=== PATIENT | female | born 1975 | race Caucasian/White ===

== ENCOUNTER → 2020-10-30 | Outpatient (CLI) | payer OTHER ==
[2020-10-30 07:58] LABS: ANION GAP 8 mmol/L (5-15); CALCIUM 8.7 mg/dL (8.5-10.1); CHLORIDE 109 mmol/L (98-107)
[2020-10-30 08:11] LABS: ALANINE AMINOTRANSFERASE 26 U/L (12-78); ALKALINE PHOSPHATASE 90 U/L (45-117); BILIRUBIN,TOTAL 0.5 mg/dL (0.2-1.0); CHOL/HDL RATIO 3.4; CHOLESTEROL, TOTAL 195 mg/dL (140-239); CREATININE 0.71 mg/dL (0.55-1.02); HDL CHOL % 30 % (28-40); HDL CHOLESTEROL (DIRECT) 58 mg/dL (40-60); LDL CHOLESTEROL,CALCULATED 116 mg/dL (54-169); TOTAL PROTEIN 7.5 g/dL (6.4-8.2); TRIGLYCERIDES 105 mg/dL (50-200); VLDL CHOLESTEROL 21 mg/dL (0-25)
== END | disposition home or self-care (01) ==
LOC: LAB 07:33
PROVIDERS: ATTEND Family Medicine
DX: R63.5 Abnormal weight gain (principal); E78.5 Hyperlipidemia, unspecified
CPT/HCPCS: 36415; 80053; 80061; 84443

== ENCOUNTER 2020-12-30 09:22 | Emergency (ER) | payer OTHER ==
[~2020-12-30] VITALS: Ht 157.5 cm; Wt 71.1 kg
--- NOTE | 2020-12-30 09:57 | NUR ---
THIS IS A 45 YO F W/ C/O N/V/D, ABD PAIN. PT REPORTS IMPROVEMENT IN N/V/D BUT BACK PAIN AND SORE THROAT FROM VOMITING PERSISTS. PT DENIES MEDICAL HX. RESTING ON GURNEY W/ CALL LIGHT IN REACH AND SIDE RAILS UPX2. VSS, FLAQUITON. AWAITING ED EVAL.
[2020-12-30] MEDS ORDERED: ONDANSETRON 2MG/ML, 2ML ONE (10:13)
[2020-12-30] MEDS ORDERED: ONDANSETRON 2MG/ML, 2ML IVPush ONE (10:30)
[2020-12-30 10:37] LABS: BASOPHILS % (AUTO) 0 % (0-1); EOSINOPHILS % (AUTO) 0 % (1-7); LYMPHOCYTES % (AUTO) 19 % (22-44); MEAN CORPUSCULAR HEMOGLOBIN 31.4 pg (27.0-34.8); MEAN CORPUSCULAR HGB CONC 34.3 g/dL (32.4-35.8); MEAN PLATELET VOLUME 8.8 fL (7.4-10.4); MONOCYTES % (AUTO) 10 % (2-9); NEUTROPHILS % (AUTO) 70 % (42-75); PLATELET COUNT 195 x10^3/uL (130-400); RED BLOOD COUNT 4.35 x10^6/uL (3.82-5.3); RED CELL DISTRIBUTION WIDTH 12.6 % (9.6-15.2)
[2020-12-30 10:47] LABS: ALANINE AMINOTRANSFERASE 29 U/L (12-78); ALBUMIN 3.7 g/dL (3.4-5.0); ANION GAP 7 mmol/L (5-15); CALCIUM 8.5 mg/dL (8.5-10.1); CHLORIDE 105 mmol/L (98-107); CREATININE 0.66 mg/dL (0.55-1.02)
[2020-12-30 10:49] LABS: ALKALINE PHOSPHATASE 82 U/L (45-117); BILIRUBIN,TOTAL 0.7 mg/dL (0.2-1.0); TOTAL PROTEIN 7.2 g/dL (6.4-8.2)
[2020-12-30] MEDS ORDERED: SODIUM CHLORIDE 0.9% 1,000ML IVBOLUS ONE (11:00)
--- NOTE | 2020-12-30 11:51 | NUR ---
REPORT FROM EMILY BECK. PT CHALLENGE INITIATED. PT UP TO RR, STEADY GAIT, DENIES NEED FOR BM. CONT TO MONITOR.
[2020-12-30 12:19] LABS: MICROSCOPIC NOT IND
[2020-12-30] MEDS ORDERED: ONDANSETRON ODT 4 MG ONE (12:49)
--- NOTE | 2020-12-30 12:57 | NUR ---
PT STATES "FEELING BETTER" AND IS OK FOR D/C PER ERMD. PT D/C'D BY TASK KIRAN DEUTSCH. PT HAS ALL OWN BELONGINGS UPON D/C.
[2020-12-30 12:58] VITALS: BP 104/60
[2020-12-30] MEDS ORDERED: ONDANSETRON ODT 4 MG PO ONE (13:00)
== END 2020-12-30 13:01 | disposition home or self-care (01) ==
LOC: ED 11:46
DX: R11.2 Nausea with vomiting, unspecified (principal); E86.0 Dehydration; R19.7 Diarrhea, unspecified; R50.9 Fever, unspecified; R94.31 Abnormal electrocardiogram [ECG] [EKG]
CPT/HCPCS: 36415; 80053; 81003; 83690; 85025; 93005; 96361; 96374; 99284; J2405; J7030; Q0162

== ENCOUNTER 2021-02-25 13:52 | Outpatient (CLI) | payer OTHER | END 2021-02-25 23:59 | disposition home or self-care (01) | LOC: CFH 13:52 | PROVIDERS: ATTEND Family Medicine | DX: N64.59 Other signs and symptoms in breast (principal); N64.4 Mastodynia | CPT/HCPCS: 76642 ==